=== PATIENT | female | born 1990 | race Caucasian/White ===

== ENCOUNTER 2018-12-03 19:26 | Emergency (ER) | payer MEDICAID, SELFPAY ==
[2018-12-03 19:27] VITALS: BP 144/84; PULSE 90; RESP 16; TEMP 36.2; O2SAT 99; BMI 22.6
--- NOTE | 2018-12-03 19:39 | ED.DCSUM_ITS ---
History of Present Illness Chief Complaint: Lower Extremity Injury Informant: Patient Occurred: Days - Injury occurred 2 days ago Mechanism/Context: Injury - Blunt trauma Onset: Days - Days ago Context: Sudden Onset Timing: Continuous Quality of Pain: Dull, Aching, Throbbing Location: Left great toe Current Severity: Mild Maximum Severity: Severe Worsened by: Weightbearing Relieved by: Better if elevated and nonuse Associated Symptoms: Negative for: Parasthesia, Weakness Narrative: Patient is a 28-year-old female who was practicing martial arts moves with her significant other. She kicked the stereo. She applied a walking boot. This occurred 2 days ago. She presents with swelling and discoloration of the left great toe. She denies paresthesia, anesthesia or motor weakness. She denies prior injury. She also is concerned she has a fungal infection. Tetanus Immunization: 5-10 years Prior similar symptoms: No Recent Illness/Hospitalization: No - Past Medical History (1) No significant past medical history Status: Acute Past Medical History - Allergies and Home Meds Allergies/Adverse Reactions: Allergies codeine Allergy (Verified 12/03/18 19:29) Angioedema Primary Care Physician: Constantine Romo MD [Primary Care Provider] - Prior records reviewed: No Past Medical History: None Surgical History: no surgical history Lives: Spouse/ Significant Other Smoking Status: Current every day smoker Alcohol: Rare Drugs: None Review of Systems General: Denies: Chills, Fever Musculoskeletal: Reports: Swelling, Extremity Pain. Denies: Myalgias, Arthralgias, Neck pain, Back pain Skin: Reports: - - Contusion medial left foot and great toe. Denies: Rash, Abscess, Wounds Neurological: Denies: Weakness, Parasthesia, Numbness Hematologic: Denies: Easy bruising, Easy bleeding Physical Exam Vital Signs/Narrative: Vital Signs Temp Pulse Resp BP Pulse Ox 12/03/18 19:27 97.2 F L 90 16 144/84 H 99 Inital Vital Signs reviewed: Yes - Extremity Exam Left Ankle: Negative for: Abrasion, Contusion, Deformity, Edema, Hematoma, Limited ROM, - Left Foot: Contusion, Limited ROM, - - Pain to palpation over the proximal phalanx of the left great toe and first metatarsal bone.. Negative for: Abrasion, Deformity, Edema, Hematoma Left Toe: Contusion - Left great toe. There is evidence of a fungal infection of her great toe nail., Limited ROM. Negative for: Abrasion, Deformity, Edema, Hematoma General: Well nourished, Well developed Head: Normocephalic, Atraumatic Cardiovascular: Regular rate, Regular rhythm Respiratory: No distress Skin: Normal color, No rash, Trauma. Negative for: Cyanosis, Diaphoresis, Jaundice Neurological: Alert, Oriented x3, Cranial nerves II-XII grossly intact, Normal Strength, Normal Sensation Psychological: Normal affect Diagnostic/Tx/Re-eval Chest X-Ray - ED: Read by ED Physician, - - Three-view x-ray of the left great toe reveals a nondisplaced intra-articular fracture proximal phalanx medial side MTP joint. - Medical Decision Making X-ray of the left great toe was obtained to assess for fracture versus contusion. The was referred to podiatry. She was instructed to wear the walking boot she had. ED Disposition - Plan for ED Patient: Disposition: Home or Assisted Living Diagnosis: Fracture of proximal phalanx of left great toe, Fungal infection of toenail Instructions: FRACTURE, Toe [Closed] Prescriptions: Naproxen [Naprosyn] 500 mg PO BID #14 tab Prescription Printed Referrals: Constantine Romo MD [Primary Care Provider] - Riley Mclaughlin DPM [STAFF PHYSICIAN] - 5-7 Days Additional Instructions: Aware walking boot while up and about. Apply ice 20 to 30 minutes per carmen lication 6-8 times a day for the next 2 to 3 days. Take medication as prescribed for pain.
--- NOTE | 2018-12-03 19:40 | RAD_ITS ---
STUDY: X-RAY LEFT FOOT, FIRST TOE REASON FOR EXAM: Female, 28 years old. Great toe injury 2 days ago TECHNIQUE: 3 view(s) of the toe were obtained. COMPARISON: None. FINDINGS: Normal visualized metatarsus. Normal metatarsophalangeal (M.T.P) joint. Normal interphalangeal joints. There is a nondisplaced oblique chip fracture of the medial base of the first proximal phalanx. The soft tissue structures are unremarkable. RAD/Toe(s) Min 2 Views IMPRESSION: Nondisplaced oblique chip fracture of the medial aspect of the base of the first proximal phalanx. Electronically Signed: Reggie Stewart MD at 19:59 EDT , Service support ,
== END 2018-12-03 20:04 | disposition home or self-care (01) ==
PROVIDERS: Emergency Provider Emergency Medicine; Family Provider Family Medicine; PCP Family Medicine
DX: S92.415A Nondisplaced fracture of proximal phalanx of left great toe, initial encounter for closed fracture (principal); B35.1 Tinea unguium; W22.8XXA Striking against or struck by other objects, initial encounter; Y93.75 Activity, martial arts; Y92.9 Unspecified place or not applicable; F17.200 Nicotine dependence, unspecified, uncomplicated
CPT/HCPCS: 73660; 99282

== ENCOUNTER → 2018-12-14 16:50 | Outpatient (CLI) | payer MEDICAID, SELFPAY ==
[2018-12-03 19:27] VITALS: BMI 22.6
[2018-12-14 17:49] LABS: Absolute Neutrophil Count 4.3 X10^3/uL (2.0-7.7); Basophil% 1.3 % (0-1); Eosinophil# 0.15 X10^3/uL; Eosinophils% 1.9 % (0-5); Hematocrit 41.2 % (37-47); Hemoglobin 13.2 g/dL (12.0-15.0); Lymphocyte % 35.3 % (19-41); Mean Corpuscular Hgb 30.1 pg (27.0-32.0); Mean Corpuscular Volume 94.1 fL (81-99); Mean Platelet Vol. 9.6 fl (6.2-12.0); Monocyte# 0.52 X10^3/uL; Monocyte% 6.5 % (0-10); NRBC Flagged by Analyzer 0 % (0-5); Neutrophil # 4.34 X10^3/uL (2.7-7.7); Neutrophil % 54.6 % (47-70); Platelet Count 390 K/mm3 (150-450); RBC Distribution Width CV 12.9 % (11.6-14.6); RBC Distribution Width SD 44.9 fl (35.1-43.9); Red Blood Count 4.38 M/mm3 (4.2-5.4); White Blood Count 7.9 K/mm3 (4.4-11.0)
[2018-12-14 18:23] LABS: ALB/GLOB Ratio 0.9 RATIO (0.9-2.4); AST(SGOT) 15 U/L (15-37); Alanine Aminotransfer ALT/SGPT 19 U/L (13-56); Albumin, Serum 3.5 g/dL (3.2-5.0); Alkaline Phosphatase 103 U/L (45-117); Anion Gap 8 (5-15); BUN 13 mg/dL (7-18); BUN/Creat Ratio 12.3 RATIO (10-20); Chloride 103 mmol/L (98-107); Creatinine, Serum 1.06 mg/dL (0.55-1.02); EST Glomerular Filtration Rate 66 mL/min (>60); Est Glom Filt Rate - Afr Amer 80 mL/min (>60); Globulin 3.7 g/dL (2.2-4.2); Glucose 230 mg/dL (74-106); Potassium 4.1 mmol/L (3.5-5.1); Protein, Total 7.2 g/dL (6.4-8.2); Sodium Level 141 mmol/L (136-145)
[2018-12-15 12:26] LABS: Hepatitis C Antibody Non-Reactive (Nonreactive)
== END ==
PROVIDERS: Nurse Practitioner Adult Health; Family Provider Family Medicine; PCP Family Medicine; Visit Provider Family Medicine
DX: E10.9 Type 1 diabetes mellitus without complications (principal); Z20.5 Contact with and (suspected) exposure to viral hepatitis
CPT/HCPCS: 36415; 80053; 85025; 86803